=== PATIENT | female | born 1980 | race Caucasian/White ===

== ENCOUNTER 2019-05-05 18:15 | Emergency (ER) | payer OTHER ==
[~2019-05-05] VITALS: Ht 165.1 cm; Wt 69.9 kg
[2019-05-05 18:25] VITALS: BP 149/90
== END 2019-05-05 19:02 | disposition home or self-care (01) ==
LOC: ER 18:28
DX: J06.9 Acute upper respiratory infection, unspecified (principal)

== ENCOUNTER → 2022-10-16 | Emergency (ER) | payer OTHER ==
[~2022-10-16] VITALS: Ht 160 cm; Wt 77.1 kg
[2022-10-16 17:26] VITALS: BP 165/89
== END | disposition home or self-care (01) ==
LOC: ER 16:59
DX: J06.9 Acute upper respiratory infection, unspecified (principal); I10 Essential (primary) hypertension; Z20.822 Contact with and (suspected) exposure to COVID-19
CPT/HCPCS: 99283; 87426; 87804; 87081; 87880; C9803; 86403-TC

== ENCOUNTER 2025-10-29 08:47 | Emergency (ER) | payer OTHER ==
[~2025-10-29] VITALS: Ht 160 cm; Wt 81.6 kg
[2025-10-29 08:58] VITALS: TEMP 98.3
[2025-10-29] MEDS ORDERED: GUAI1TBM19 PO (09:11)
[2025-10-29] MEDS ORDERED: BENZ-13 PO (09:11)
[2025-10-29] MEDS ORDERED: GUAIFENESIN/D-METHORPHAN HB 5 ML UDC ONE (09:16)
[2025-10-29] MEDS: GUAIFENESIN/D-METHORPHAN HB 5 ML UDC PO ONE (09:19)
[2025-10-29 09:49] VITALS: BP 162/97
[2025-10-29 09:52] VITALS: O2SAT 98
== END 2025-10-29 09:53 | disposition home or self-care (01) ==
LOC: ER 09:06
DX: J06.9 Acute upper respiratory infection, unspecified (principal); B97.89 Other viral agents as the cause of diseases classified elsewhere; R05.9 Cough, unspecified
CPT/HCPCS: 71045-TC